=== PATIENT | female | born 1945 | race Caucasian/White ===

== ENCOUNTER 2018-11-06 21:49 | Observation (INO) ==
[2018-11-06] MEDS ORDERED: 0.9 % Sodium Chloride 1,000 ML IVC SCH ×2 (22:00)
--- NOTE | 2018-11-06 22:01 | Emergency Department Note ---
Disposition Clinical Impression: UTI (urinary tract infection), Weakness Disposition: Admitted As Inpatient Condition: Good Reasons to Return/Additional Instructions: Blood pressure screening: When you had your blood pressure taken, if the top number was greater than 120 with a bottom number was greater than 80, I discussed and recommended that you call your primary care provider or a physician of your choice this week to arrange follow-up for further evaluation of your blood pressure. Elevated blood pressures which go untreated can lead to stroke, heart attack, kidney failure and other life-threatening diseases. This is a screening exam and recommendations are to follow with your Family Physician. ( We discussed reasons why the elevation could be occurring at this time. ) If you have had an EKG and/or x-ray performed in the emergency department, it will be reviewed by the waiter/waitress take out and/or radiologist. If the review changes your diagnosis or treatment you will be contacted at the phone number you provided. Prescribed outpatient testing: Please call to schedule an appointment for the test that was ordered on the form provided. If you been prescribed an antibiotic: Take it as instructed until itis all finished. If you cannot tolerate that medication for some reason, call your physician for a replacement. If he had a specimen collected for a culture, a culture report takes 48-72 hours to generate. You will be contacted if a change in treatment is needed. Return if your condition worsens or if you have severe pain, fever, vomiting or difficulty breathing. If you received or were prescribed a medication that may cause drowsiness (Tramadol, Phenergan, Trazodone, Diazepam, Lorazepam, Hydroxyzine, Xanax, Hydrocodone, Oxycodone, Codeine, or any other medication) DO NOT drive or drink alcohol, or operate machinery that requires you to be alert for at least 8 hours after taking that medication. If you smoke or chew tobacco products: discuss with your family physician options to help in the cessation in the use of tobacco products. If you to find a physician: Go to [email or web address] or call: [facility], [facility] [phone] [facility], You may have multiple scripts and some may have been electronically sent . If you are give a printed script please also take this in when filling the scripts. A diagnosis may require multiple medications to treat and all are important in your healthcare issues. Referrals: Stephen Ugalde MD [Primary Care Provider] - Forms: ED Satisfaction Letter, Work/School Release Time of Disposition: 23:20 Weakness HPI - General Chief complaint: ED General Medical Stated complaint: tired Time Seen by Provider: 11/06/18 21:49 Source: patient Mode of arrival: ambulatory Limitations: no limitations Nursing Notes Reviewed: Yes Vital Signs Reviewed: Yes - History of Present Illness HPI Narrative: 73-year-old female who was escorted by family in that the emergency room and was sat down in the waiting room when called for from the waiting room patient was unable to get up and ambulate to the emergency room with just global weakness when patient gets back to the emergency room she states this lower weakness is been getting worse over the past couple weeks this is not anything new but assisted the point where now she is tired she's welded she is no energy she denies any calf pain test that she denies any rashes lesions she denies any bruising or ecchymosis she denies any neck pain neck stiffness joint aches any recent changes in medications she denies any diarrhea cough cold of flu symptoms all systems reviewed otherwise negative Pt Subjective Complaint: generalized weakness/fatigue Onset (ago): week(s) Duration: gradually worsening Location: generalized Pain Scale: 0 Improves with: none Worsens with: movement Associated symptoms: Denies: chest pain, confusion, dark stools, diaphoresis, dysuria, easy bruising, fever/chills, headaches, loss of appetite, nausea/vomit ing, myalgias, shortness of breath, syncope - Related Data Home Medications Medication Instructions Recorded Confirmed ASA/Acetaminophn/Mag/Alh/Caff 2 tab PO Q6H PRN 11/30/16 11/06/18 [[place]] Amlodipine Besylate 10 mg PO HS 11/30/16 11/06/18 Atorvastatin [Lipitor] 40 mg PO HS 11/30/16 11/06/18 Duloxetine HCl [Cymbalta] 60 mg PO HS 11/30/16 11/06/18 Gabapentin [Neurontin] 800 mg PO BID 11/30/16 11/06/18 Tizanidine HCl 4 mg PO HS PRN 11/30/16 11/06/18 clonazePAM [Klonopin] 1 mg PO BID PRN 11/30/16 11/06/18 Cholecalciferol (D-3) [Vitamin D] 2,000 unit PO DAILY 12/08/16 11/06/18 Fluticasone Propionate Nasal 1 - 2 spr NS DAILY PRN 07/13/17 11/06/18 [Flonase] Ibuprofen [Motrin] 200 mg PO Q4HR PRN 07/13/17 11/06/18 Famotidine [Heartburn Prevention] 20 mg PO 11/06/18 Loratadine [Claritin] 10 mg PO DAILY 11/06/18 11/06/18 raNITIdine HCl [Zantac] 150 mg PO DAILY 11/06/18 11/06/18 Previous Rx's Medication Instructions Recorded Pantoprazole Sodium [Protonix] 40 mg PO DAILY #30 tablet. 12/26/16 Allergies Allergy/AdvReac Type Severity Reaction Status Date / Time bacitracin Allergy Rash Verified 08/12/18 13:47 [From Neosporin ([id number])] Neomycin Allergy Rash Verified 08/12/18 13:47 [From Neosporin ([id number])] polymyxin B Allergy Rash Verified 08/12/18 13:47 [From Neosporin ([id number])] Sulfa (Sulfonamide AdvReac Agitated Verified 08/12/18 13:47 Antibiotics) All systems ED: reviewed and negative except as stated. Review of Systems: As Per HPI Constitutional: Reports: weakness. Denies: fever, chills Eyes: Denies: eye pain, eye discharge ENT ED: Denies: ear pain, throat pain Cardiovascular: Denies: chest pain, palpitations Respiratory: Denies: cough, dyspnea, wheezes Gastrointestinal: Denies: abdominal pain, nausea, vomiting Genitourinary: Denies: urgency, dysuria, frequency Musculoskeletal: Denies: back pain, neck pain Integumentary: Denies: rash, abrasion Neurological: Reports: weakness. Denies: headache, numbness, confusion Psychiatric: Denies: anxiety, depression Endocrine: Reports: fatigue Hematological/Lymphatic: Denies: easy bleeding Allergic/Immunologic: Denies: facial swelling Past Medical History - Past Medical History Attestation: Yes The following information was validated with the patient. Source: patient, old records reviewed, obtained from family, nursing notes reviewed Medical history: Reports: cancer, hyperlipidemia, hypertension Surgical history: Reports: breast surgery, hysterectomy, other Psychiatric history: Reports: anxiety, depression - Social History Smoking Status: Current every day smoker Smokeless Tobacco Status: No Alcohol use: Reports: none Drug use: Reports: none Physical Exam - General Limitations: no limitations General appearance: alert, in no apparent distress, other (Profoundly weak) - Head Head exam: atraumatic, normocephalic, normal inspection - Eye Eye exam: Present: normal appearance, PERRL, EOMI - ENT ENT exam: normal exam, normal oropharynx, mucous membranes moist, TM's normal bilaterally, normal external ear exam - Neck Neck exam: Present: normal inspection, full ROM, trachea midline - Chest Chest inspection: Present: normal inspection, symmetric chest wall rise - Respiratory Respiratory exam: Present: normal lung sounds bilaterally - Cardiovascular Cardiovascular exam: Present: regular rate, normal rhythm, normal heart sounds - Abdominal Exam Abdominal exam: Present: soft, Non-Tender, normal bowel sounds. Absent: mass, pulsatile mass - Expanded Upper Extremity Exam Shoulder exam: Present: normal inspection, full ROM Arm exam: Present: normal inspection, full ROM Elbow exam: Present: normal inspection, full ROM Forearm/Wrist exam: Present: normal inspection, full ROM Hand exam: Present: normal inspection, full ROM Vascular exam: Normal: capillary refill, radial pulse - Expanded Lower Extremity Exam Hip/Pelvis exam: Present: normal inspection, full ROM Upper leg exam: Present: normal inspection, full ROM Knee exam: Present: normal inspection, full ROM Lower leg exam: Present: normal inspection, full ROM Ankle exam: Present: normal inspection, full ROM Foot/toe exam: Present: normal inspection, full ROM Neurovascular/Tendon exam: Present: normal capillary refill, normal fine/light touch. Absent: motor deficit, sensory deficit, tendon deficit Gait: other (Patient was able to walk in from the parking lot but when going from the chair to the emergency room patient's that she was too weak to even get up and move) - Back Exam Back exam: Present: normal inspection, full ROM. Absent: muscle spasm - Neurological Exam Neurological exam: Present: alert, oriented X3, CN II-XII intact, normal gait - Psychiatric Psychiatric exam: Present: normal affect, normal mood - Skin Skin exam: Present: warm, dry, intact, normal color Course Course Narrative: Patient was immediately seen and evaluated laboratory data was ordered she was assisted from a wheelchair to the bed patient started to lose her strength and she was assisted up to the bed by myself and the nurse patient had labs EKG and chest x-ray and CT head with the EKG took time to obtain because there is a wandering baseline secondary to patient's respiratory effort with all the pain and weakness coming on over a period of time this is not something abrupt the patient is being evaluated will recommend recommendation for hospitalization to determine etiology for her overall weakness - Reevaluation(s) Reevaluation #1: Urinalysis comes back showing is positive for UTI we data blood cultures will have the patient admitted receive IV antibiotics for improvement patient and family agreeable transferred to [facility] Dr. Paul agrees Vital Signs Temperature 98.7 F 11/06/18 21:49 Pulse Rate 94 11/06/18 21:49 Respiratory Rate 16 11/06/18 21:49 Blood Pressure 154/70 11/06/18 21:49 O2 Sat by Pulse Oximetry 95 11/06/18 21:49 Temperature 98.7 F 11/06/18 21:49 Pulse Rate 83 11/06/18 23:31 Respiratory Rate 18 11/06/18 23:31 Blood Pressure 144/63 11/06/18 23:31 O2 Sat by Pulse Oximetry 93 11/06/18 23:31 Oxygen Delivery Oxygen Delivery Room Air Weakness - Differential Diagnosis Differential Diagnosis: Likely: anemia, sepsis/infection, dehydration, stroke, metabolic, thyroid/endocrine disorder - Medical Records Medical records reviewed: Yes I reviewed the patient's medical records. - Lab Data Lab results reviewed: Yes I reviewed the patient's lab results. Result diagrams: 11/06/18 22:15 11/06/18 22:15 Lab Results 11/06/18 11/06/18 11/06/18 Range/Units 22:15 22:15 22:15 WBC 9.0 (4.3-11.1) K/mcL RBC 4.54 (3.82-4.97) M/mcL Hgb 13.6 (11.5-15.4) g/dL Hct 41.6 (35.3-44.9) % MCV 91.6 (83.0-100.0) fL MCH 30.0 (28.0-33.3) pg MCHC 32.7 (31.6-35.5) g/dL RDW 13.8 (11.5-14.5) % Plt Count 329 (140-400) K/mcL MPV 10.7 (9.4-12.4) fL Immature Gran % 0.1 (0-4) % Seg Neutrophils % 55.0 % Lymphocytes % 28.7 % Monocytes % 6.7 % Eosinophils % 8.2 % Basophils % 1.3 % Neutrophils # 4.9 (1.6-8.9) K/mcL Lymphocytes # 2.6 (0.6-4.6) K/mcL Monocytes # 0.6 (0.0-1.3) K/mcL Eosinophils # 0.7 H (0.0-0.6) K/mcL Basophils # 0.1 (0.0-0.2) K/mcL PT (9.4-12.1) Seconds INR APTT 35.9 (26.0-36.0) Seconds D-Dimer (0-500) ng/mLFEU Sample Site ABG pH (7.32-7.45) pH Units ABG pCO2 (35-45) mmHg ABG pO2 (85-104) mmHg ABG HCO3 (21-27) mEq/L ABG Total CO2 (20-26) mEq/L ABG O2 Saturation (95-98) % ABG Base Excess (-2 to 3) mEq/L Javon Test O2 Delivery Device Sodium 139 (136-145) mEq/L Potassium 4.4 (3.5-5.1) mEq/L Chloride 107 (98-107) mEq/L Carbon Dioxide 22 L (23-29) mEq/L BUN 10 (8-23) mg/dL Creatinine 0.79 (0.60-1.20) mg/dL Est GFR ( Amer) > 60 (> 60) Est GFR (Non-Af Amer) > 60 (> 60) BUN/Creatinine Ratio 13 (6-26) Glucose 111 H (70-105) mg/dL Calculated Osmolality 288 (280-300) Lactic Acid (0.5-2.2) mmol/L Calcium 9.8 (8.6-10.3) mg/dL Magnesium (1.6-2.6) mg/dL Total Bilirubin 0.4 (0.3-1.0) mg/dL AST 30 (13-39) Units/L ALT 35 (7-52) Units/L Alkaline Phosphatase 79 (34-104) Units/L Troponin I (< 0.04) ng/mL B-Natriuretic Peptide (Less than 100) pg/mL Serum Total Protein 7.2 (6.4-8.9) g/dL Albumin 4.1 (3.5-5.7) g/dL Globulin 3.1 (2.4-3.5) g/dL Albumin/Globulin Ratio 1.3 (1.1-2.2) TSH (0.340-5.600) mcIU/mL Urine Color (Yellow) Urine Clarity (Clear) Urine pH (5.0-8.0) pH Units Ur Specific [place] (1.010-1.025) Urine Protein (Neg-Trace) mg/dL Urine Glucose (UA) (Normal) mg/dL Urine Ketones (Negative) mg/dL Urine Blood (Negative) Urine Nitrite (Negative) Urine Bilirubin (Negative) Urine Urobilinogen (Normal) mg/dL Ur Leukocyte Esterase (Negative) Urine Microscopic RBC (0-3) per hpf Urine Microscopic WBC (0-3) per hpf Ur Squamous Epith Cells (None-Few) per lpf Ur Culture Indicated? (NO) 11/06/18 11/06/18 11/06/18 Range/Units 22:15 22:15 22:15 WBC (4.3-11.1) K/mcL RBC (3.82-4.97) M/mcL Hgb (11.5-15.4) g/dL Hct (35.3-44.9) % MCV (83.0-100.0) fL MCH (28.0-33.3) pg MCHC (31.6-35.5) g/dL RDW (11.5-14.5) % Plt Count (140-400) K/mcL MPV (9.4-12.4) fL Immature Gran % (0-4) % Seg Neutrophils % % Lymphocytes % % Monocytes % % Eosinophils % % Basophils % % Neutrophils # (1.6-8.9) K/mcL Lymphocytes # (0.6-4.6) K/mcL Monocytes # (0.0-1.3) K/mcL Eosinophils # (0.0-0.6) K/mcL Basophils # (0.0-0.2) K/mcL PT 11.4 (9.4-12.1) Seconds INR 1.0 APTT (26.0-36.0) Seconds D-Dimer 490 (0-500) ng/mLFEU Sample Site ABG pH (7.32-7.45) pH Units ABG pCO2 (35-45) mmHg ABG pO2 (85-104) mmHg ABG HCO3 (21-27) mEq/L ABG Total CO2 (20-26) mEq/L ABG O2 Saturation (95-98) % ABG Base Excess (-2 to 3) mEq/L Javon Test O2 Delivery Device Sodium (136-145) mEq/L Potassium (3.5-5.1) mEq/L Chloride (98-107) mEq/L Carbon Dioxide (23-29) mEq/L BUN (8-23) mg/dL Creatinine (0.60-1.20) mg/dL Est GFR ( Amer) (> 60) Est GFR (Non-Af Amer) (> 60) BUN/Creatinine Ratio (6-26) Glucose (70-105) mg/dL Calculated Osmolality (280-300) Lactic Acid 1.3 (0.5-2.2) mmol/L Calcium (8.6-10.3) mg/dL Magnesium 2.1 (1.6-2.6) mg/dL Total Bilirubin (0.3-1.0) mg/dL AST (13-39) Units/L ALT (7-52) Units/L Alkaline Phosphatase (34-104) Units/L Troponin I < 0.03 (< 0.04) ng/mL B-Natriuretic Peptide (Less than 100) pg/mL Serum Total Protein (6.4-8.9) g/dL Albumin (3.5-5.7) g/dL Globulin (2.4-3.5) g/dL Albumin/Globulin Ratio (1.1-2.2) TSH 1.189 (0.340-5.600) mcIU/mL Urine Color (Yellow) Urine Clarity (Clear) Urine pH (5.0-8.0) pH Units Ur Specific [place] (1.010-1.025) Urine Protein (Neg-Trace) mg/dL Urine Glucose (UA) (Normal) mg/dL Urine Ketones (Negative) mg/dL Urine Blood (Negative) Urine Nitrite (Negative) Urine Bilirubin (Negative) Urine Urobilinogen (Normal) mg/dL Ur Leukocyte Esterase (Negative) Urine Microscopic RBC (0-3) per hpf Urine Microscopic WBC (0-3) per hpf Ur Squamous Epith Cells (None-Few) per lpf Ur Culture Indicated? (NO) 11/06/18 11/06/18 11/06/18 Range/Units 22:15 22:23 22:50 WBC (4.3-11.1) K/mcL RBC (3.82-4.97) M/mcL Hgb (11.5-15.4) g/dL Hct (35.3-44.9) % MCV (83.0-100.0) fL MCH (28.0-33.3) pg MCHC (31.6-35.5) g/dL RDW (11.5-14.5) % Plt Count (140-400) K/mcL MPV (9.4-12.4) fL Immature Gran % (0-4) % Seg Neutrophils % % Lymphocytes % % Monocytes % % Eosinophils % % Basophils % % Neutrophils # (1.6-8.9) K/mcL Lymphocytes # (0.6-4.6) K/mcL Monocytes # (0.0-1.3) K/mcL Eosinophils # (0.0-0.6) K/mcL Basophils # (0.0-0.2) K/mcL PT (9.4-12.1) Seconds INR APTT (26.0-36.0) Seconds D-Dimer (0-500) ng/mLFEU Sample Site R Radial ABG pH 7.42 (7.32-7.45) pH Units ABG pCO2 40 (35-45) mmHg ABG pO2 72 L (85-104) mmHg ABG HCO3 26 (21-27) mEq/L ABG Total CO2 27 H (20-26) mEq/L ABG O2 Saturation 95 (95-98) % ABG Base Excess 2 (-2 to 3) mEq/L Javon Test Positive O2 Delivery Device Room Air Sodium (136-145) mEq/L Potassium (3.5-5.1) mEq/L Chloride (98-107) mEq/L Carbon Dioxide (23-29) mEq/L BUN (8-23) mg/dL Creatinine (0.60-1.20) mg/dL Est GFR ( Amer) (> 60) Est GFR (Non-Af Amer) (> 60) BUN/Creatinine Ratio (6-26) Glucose (70-105) mg/dL Calculated Osmolality (280-300) Lactic Acid (0.5-2.2) mmol/L Calcium (8.6-10.3) mg/dL Magnesium (1.6-2.6) mg/dL Total Bilirubin (0.3-1.0) mg/dL AST (13-39) Units/L ALT (7-52) Units/L Alkaline Phosphatase (34-104) Units/L Troponin I (< 0.04) ng/mL B-Natriuretic Peptide 45 (Less than 100) pg/mL Serum Total Protein (6.4-8.9) g/dL Albumin (3.5-5.7) g/dL Globulin (2.4-3.5) g/dL Albumin/Globulin Ratio (1.1-2.2) TSH (0.340-5.600) mcIU/mL Urine Color Yellow (Yellow) Urine Clarity Clear (Clear) Urine pH 7.0 (5.0-8.0) pH Units Ur Specific [place] 1.015 (1.010-1.025) Urine Protein Negative (Neg-Trace) mg/dL Urine Glucose (UA) Normal (Normal) mg/dL Urine Ketones Negative (Negative) mg/dL Urine Blood Negative (Negative) Urine Nitrite Negative (Negative) Urine Bilirubin Negative (Negative) Urine Urobilinogen Normal (Normal) mg/dL Ur Leukocyte Esterase Trace H (Negative) Urine Microscopic RBC 0-3 (0-3) per hpf Urine Microscopic WBC 0-3 (0-3) per hpf Ur Squamous Epith Cells Few (None-Few) per lpf Ur Culture Indicated? YES A (NO) - Radiology Data Radiology results reviewed: Yes I reviewed the patient's radiology results. ITS Impressions Chest X-Ray 11/06/18 21:58 IMPRESSION: Stable portable study. D/ / Isabelle Arana Cha, MD / Isabelle Arana Cha, MD Interpreting Provider: Isabelle Arana Cha, MD Head CT 11/06/18 21:58 IMPRESSION: No acute intracranial abnormality. D/ / Isabelle Arana Cha, MD / Isabelle Arana Cha, MD Interpreting Provider: Isabelle Arana Cha, MD - EKG Data EKG attestation: Yes I reviewed and interpreted this EKG. EKG results narrative: Sinus rhythm left bundle branch block rate 98 IL 137 QRS 126 QT 415 Access 63 Critical Care Time Critical Care Time: No
[2018-11-06 22:28] LABS: ABG Base Excess 2 mEq/L (-2 to 3); ABG HCO3 26 mEq/L (21-27); ABG Oxygen Saturation 95 % (95-98); ABG PCO2 40 mmHg (35-45); ABG PH 7.42 pH Units (7.32-7.45); ABG PO2 72 mmHg (85-104); ABG TCO2 27 mEq/L (20-26)
[2018-11-06 22:35] LABS: Basophils # 0.1 K/mcL (0.0-0.2); Basophils % 1.3 %; Eosinophils # 0.7 K/mcL (0.0-0.6); Eosinophils % 8.2 %; Hematocrit 41.6 % (35.3-44.9); Hemoglobin 13.6 g/dL (11.5-15.4); Immature Granulocytes % 0.1 % (0-4); Lymphocytes # 2.6 K/mcL (0.6-4.6); Lymphocytes % 28.7 %; Mean Corpuscular HGB Conc 32.7 g/dL (31.6-35.5); Mean Corpuscular Volume 91.6 fL (83.0-100.0); Mean Platelet Volume 10.7 fL (9.4-12.4); Monocytes # 0.6 K/mcL (0.0-1.3); Monocytes % 6.7 %; Neutrophils # 4.9 K/mcL (1.6-8.9); Platelet Count 329 K/mcL (140-400); Red Blood Count 4.54 M/mcL (3.82-4.97); Red Cell Distribution Width 13.8 % (11.5-14.5)
[2018-11-06 22:41] LABS: Prothrombin Time 11.4 Seconds (9.4-12.1)
[2018-11-06 22:50] LABS: Troponin I < 0.03 ng/mL (< 0.04)
[2018-11-06 22:51] LABS: Bilirubin,Urine Negative (Negative); Blood,Urine Negative (Negative); Clarity,Urine Clear (Clear); Color,Urine Yellow (Yellow); Glucose,Urine (UA) Normal (Normal); Ketones,Urine Negative (Negative); Leukocyte Esterase,Urine Trace (Negative); Nitrite,Urine Negative (Negative); Protein,Urine Negative (Neg-Trace); Specific Gravity,Urine 1.015 (1.010-1.025); Urobilinogen,Urine Normal (Normal)
[2018-11-06 22:53] LABS: Alanine Aminotransferase 35 Units/L (7-52); Albumin 4.1 g/dL (3.5-5.7); Albumin/Globulin Ratio 1.3 (1.1-2.2); Alkaline Phosphatase 79 Units/L (34-104); Aspartate Amino Transferase 30 Units/L (13-39); BUN/Creatinine Ratio 13 (6-26); Bilirubin,Total 0.4 mg/dL (0.3-1.0); Blood Urea Nitrogen 10 mg/dL (8-23); Calcium 9.8 mg/dL (8.6-10.3); Carbon Dioxide 22 mEq/L (23-29); Chloride 107 mEq/L (98-107); Globulin 3.1 g/dL (2.4-3.5); Glucose 111 mg/dL (70-105); Osmolality,Calculated 288 (280-300); Potassium 4.4 mEq/L (3.5-5.1); Sodium 139 mEq/L (136-145); Total Protein 7.2 g/dL (6.4-8.9); eGFR For Non-African Americans > 60 (> 60)
[2018-11-06 22:54] LABS: Magnesium 2.1 mg/dL (1.6-2.6)
[2018-11-06 22:58] LABS: RBC,Urine 0-3 per hpf (0-3); Squamous Epithelial Cell,Urine Few per lpf (None-Few); WBC,Urine 0-3 per hpf (0-3)
[2018-11-06 23:04] LABS: Thyroid Stimulating Hormone 1.189 mcIU/mL (0.340-5.600)
[2018-11-06] MEDS: 0.9 % Sodium Chloride 1,000 ML IVC SCH (23:54)
[2018-11-07] MEDS ORDERED: Naloxone 0.4 MG/ML INJ IVP PRN (00:15)
[2018-11-07] MEDS ORDERED: Ibuprofen 400 MG TABLET PO PRN (00:15)
[2018-11-07] MEDS ORDERED: tiZANidine 4 MG TABLET PO PRN (00:15)
[2018-11-07] MEDS ORDERED: VANQUISH PO PRN (00:15)
[2018-11-07] MEDS ORDERED: Fluticasone Propionate Nasal 50 MCG/SPRAY BOTTLE NS PRN (00:15)
[2018-11-07] MEDS ORDERED: amLODIPine 5 MG TABLET PO SCH ×2 (00:59→21:00)
[2018-11-07] MEDS: clonazePAM 0.5 MG TABLET PO PRN ×2 (01:15→08:36)
[2018-11-07] MEDS: Gabapentin 400 MG CAPSULE PO SCH ×2 (01:15→08:29)
[2018-11-07 05:23] LABS: Basophils # 0.1 K/mcL (0.0-0.2); Basophils % 1.3 %; Eosinophils # 0.7 K/mcL (0.0-0.6); Eosinophils % 8.5 %; Hematocrit 37.4 % (35.3-44.9); Hemoglobin 12.3 g/dL (11.5-15.4); Immature Granulocytes % 0.1 % (0-4); Lymphocytes # 2.9 K/mcL (0.6-4.6); Mean Corpuscular HGB Conc 32.9 g/dL (31.6-35.5); Mean Corpuscular Hemoglobin 30.1 pg (28.0-33.3); Mean Corpuscular Volume 91.4 fL (83.0-100.0); Mean Platelet Volume 10.4 fL (9.4-12.4); Monocytes # 0.7 K/mcL (0.0-1.3); Monocytes % 8.1 %; Neutrophils # 4.1 K/mcL (1.6-8.9); Platelet Count 315 K/mcL (140-400); Red Blood Count 4.09 M/mcL (3.82-4.97); Red Cell Distribution Width 13.8 % (11.5-14.5)
[2018-11-07] MEDS: 0.9 % Sodium Chloride 1,000 ML IVC SCH (05:31)
[2018-11-07 05:43] LABS: BUN/Creatinine Ratio 13 (6-26); Blood Urea Nitrogen 9 mg/dL (8-23); Carbon Dioxide 25 mEq/L (23-29); Chloride 111 mEq/L (98-107); Glucose 85 mg/dL (70-105); Osmolality,Calculated 290 (280-300); Potassium 3.6 mEq/L (3.5-5.1); Sodium 141 mEq/L (136-145); eGFR For Non-African Americans > 60 (> 60)
[2018-11-07] MEDS ORDERED: Famotidine 20 MG TABLET PO SCH (06:30)
[2018-11-07] MEDS ORDERED: Cholecalciferol (D-3) 1,000 UNIT TABLET PO SCH (09:00)
[2018-11-07] MEDS ORDERED: Loratadine 10 MG TABLET PO SCH (09:00)
[2018-11-07] MEDS ORDERED: Gabapentin 400 MG CAPSULE PO SCH (09:00)
[2018-11-07 10:11] VITALS: BP 125/61
--- NOTE | 2018-11-07 11:27 | Internal Med History&Physical ---
Date of Encounter: 11/07/18 Time of Encounter: 10:50 Assessment and Plan (1) COPD (chronic obstructive pulmonary disease) Current visit: Yes Status: Chronic Suspect exacerbation of COPD with asthma component with possible superimposed viral bronchitis. I encouraged her to discontinue electronic cigarette. She has aerosol nebulizer at home. Room air oximetry will be checked on 6 minute walk prior to discharge. Qualifiers: COPD type: unspecified COPD Qualified Code(s): J44.9 - Chronic obstructive pulmonary disease, unspecified (2) Hypertension Current visit: Yes Status: Chronic Continue amlodipine Qualifiers: Hypertension type: essential hypertension Qualified Code(s): I10 - Essential (primary) hypertension (3) Weakness Current visit: Yes Status: Acute Suspect exacerbation of COPD with possible superimposed viral infection. (4) UTI (urinary tract infection) Current visit: Yes Status: Acute Equivocal. She received Rocephin in the emergency room. No WBC or bacteria were seen in the urine. Antibodies will not be continued. Qualifiers: Urinary tract infection type: site unspecified Hematuria presence: without hematuria Qualified Code(s): N39.0 - Urinary tract infection, site not specified Internal Medicine - H&P: HPI Chief complaint: Weakness Admitted From: Emergency Dept Plans for Post Hospital Care: Home History of present illness: Ms. Schilling is a 73 year old female who came to emergency room stating she had weakness with mild lower abdominal discomfort present for approximately 2 weeks. She states she felt tired and occasional chilled but no fever. She has a diagnosis of IBS but states there has been no change in her pattern of rare diarrhea or vomiting. She had no other infectious symptoms. She came to emergency room and was felt to have UTI. [facility] care [facility]. She states she feels improved at the present time and stable for discharge home. Past Med Surg Social Fam HX - Past Medical History Medical history: cancer, hyperlipidemia, hypertension Additional medical history: chrohns, Psychiatric history: anxiety, depression - Past Surgical History Surgical History: breast surgery, hysterectomy, other Additional surgical history: colon resection,egd,,left heart cath. 12/08/16 L BREAST MASTECTOMY PER - Social History Smoking Status: Current every day smoker Smokeless Tobacco Status: No Alcohol use: none Drug use: none - Family History Mother Hx Family Cardiac Disorders: Yes Internal Medicine - H&P: Meds ASA/Acetaminophn/Mag/Alh/Caff [Vanquish Caplet] 2 tab PO Q6H PRN 11/30/16 [History] Amlodipine Besylate 10 mg PO HS 11/30/16 [History] Atorvastatin [Lipitor] 40 mg PO HS 11/30/16 [History] Duloxetine HCl [Cymbalta] 60 mg PO HS 11/30/16 [History] Gabapentin [Neurontin] 800 mg PO BID 11/30/16 [History] Tizanidine HCl 4 mg PO HS PRN 11/30/16 [History] clonazePAM [Klonopin] 1 mg PO BID PRN 11/30/16 [History] Cholecalciferol (D-3) [Vitamin D] 2,000 unit PO DAILY 12/08/16 [History] Pantoprazole Sodium [Protonix] 40 mg PO DAILY #30 tablet. 12/26/16 [Rx] Fluticasone Propionate Nasal [Flonase] 1 - 2 spr NS DAILY PRN 07/13/17 [History] Ibuprofen [Motrin] 200 mg PO Q4HR PRN 07/13/17 [History] Famotidine [Heartburn Prevention] 20 mg PO 11/06/18 [History] Loratadine [Claritin] 10 mg PO DAILY 11/06/18 [History] raNITIdine HCl [Zantac] 150 mg PO DAILY 11/06/18 [History] Allergy/AdvReac Type Severity Reaction Status Date / Time bacitracin Allergy Rash Verified 08/12/18 13:47 [From Neosporin ([id number])] Neomycin Allergy Rash Verified 08/12/18 13:47 [From Neosporin ([id number])] polymyxin B Allergy Rash Verified 08/12/18 13:47 [From Neosporin ([id number])] Sulfa (Sulfonamide AdvReac Agitated Verified 08/12/18 13:47 Antibiotics) All Systems PM: A 10-system review of systems was performed and is negative for pertinent findings except as documented above in the HPI. Review of systems: Gen.: She states her weight has been stable the past few months Cardiovascular: She has history of hypertension but denies [place] heart failure angina DVT or pulmonary embolus Respiratory: She smoked cigarettes for approximately age [age] up to one pack per day. She now uses electronic cigarette. She reports PFTs were done in the past but she does not recall the date. She claims she was told in the past she has COPD but is not using home oxygen. GI: She has been diagnosed with IBS as per history of present illness. She has occasional GERD symptoms. She was told in the past she had Crohn's disease and had approximately 14 inches of small and large bowel resection in 1967. She had colonoscopy 07/13/2017 which showed nonbleeding internal hemorrhoids and evidence of previous [id number]-[id number] ileocolonic anastomosis from extended right hemicolectomy. : She had cystoscopy 2013 her she denies disorders of her kidneys or bladder. Neurologic: She denies large distribution strokes or seizures. Endocrine: She has hyperlipidemia but denies diabetes or thyroid disease Hematology/oncology: She had left breast cancer lumpectomy November 2016. She did not receive postop XRT or chemotherapy. She states she is cancer free. She denies other internal malignancies or blood disorders. Psychiatric: She has anxiety and depression but denies other mental health diagnoses. [place] skeletal: She has degenerative disc disease of her back. She has DJD and osteoporosis but denies gout. - Constitutional Vitals: Temp Pulse Resp BP Pulse Ox 98.8 F 83 18 125/61 92 11/07/18 10:10 11/07/18 10:10 11/07/18 10:10 11/07/18 10:10 11/07/18 10:10 Exam: Gen.: She is a well-developed well-nourished female lying in bed who appears in no acute distress HEENT: Head is atraumatic and normocephalic. Eyes: EOMI. There is no scleral icterus. Mouth: Mucosa is moist. Neck: Supple and nontender. There is no thyromegaly or adenopathy noted. Heart: Regular without murmurs gallops or ectopics Lungs: She has prolonged expiratory phase and mild diffuse wheezing. Abdomen: Soft and nontender. No masses or guarding are noted. Extremities: There is no cyanosis edema or clubbing noted. Dorsalis pedis and posttibial pulses are trace to 1+ palpable bilaterally. Neurologic: Mental status: She is talkative and a good historian. Cranial nerves: Smile is symmetric. Forehead wrinkles bilaterally. Tongue protrudes midline. EOMI. Motor: There is no pronator drift. Cerebellar: Finger to nose is intact bilaterally. Skin: Warm and dry Internal Med - H&P Results - Labs CBC & Chem 7: 11/07/18 05:02 11/07/18 05:02 Labs: Short CBC 11/06/18 11/07/18 Range/Units 22:15 05:02 WBC 9.0 8.5 (4.3-11.1) K/mcL Hgb 13.6 12.3 (11.5-15.4) g/dL Hct 41.6 37.4 (35.3-44.9) % Plt Count 329 315 (140-400) K/mcL Neutrophils # 4.9 4.1 (1.6-8.9) K/mcL BMP 11/06/18 11/07/18 22:15 05:02 Sodium 139 141 Potassium 4.4 3.6 Chloride 107 111 H Carbon Dioxide 22 L 25 BUN 10 9 Creatinine 0.79 0.70 Glucose 111 H 85 Calcium 9.8 9.0 Cardiac Enzymes 11/06/18 Range/Units 22:15 Troponin I < 0.03 (< 0.04) ng/mL Liver Function 11/06/18 Range/Units 22:15 Total Bilirubin 0.4 (0.3-1.0) mg/dL AST 30 (13-39) Units/L ALT 35 (7-52) Units/L Alkaline Phosphatase 79 (34-104) Units/L Albumin 4.1 (3.5-5.7) g/dL Urine 11/06/18 Range/Units 22:50 Urine Color Yellow (Yellow) Urine Clarity Clear (Clear) Urine pH 7.0 (5.0-8.0) pH Units Ur Specific [place] 1.015 (1.010-1.025) Urine Protein Negative (Neg-Trace) mg/dL Urine Glucose (UA) Normal (Normal) mg/dL - ABG Interpretation ABG results: 11/06/18 22:23 ABG pH 7.42 ABG pCO2 40 ABG pO2 72 L ABG HCO3 26 ABG Total CO2 27 H ABG O2 Saturation 95 ABG Base Excess 2 - Impressions ITS Impressions Chest X-Ray 11/06/18 21:58 IMPRESSION: Stable portable study. D/ / Isabelle Arana Cha, MD / Isabelle Arana Cha, MD Interpreting Provider: Isabelle Arana Cha, MD Head CT 11/06/18 21:58 IMPRESSION: No acute intracranial abnormality. D/ / Isabelle Arana Cha, MD / Isabelle Arana Cha, MD Interpreting Provider: Isabelle Arana Cha, MD
--- NOTE | 2018-11-07 11:44 | Discharge Summary ---
Orders not resulted at time of discharge: Pending orders 11/06/18 22:50 Culture,Urine [RM] Stat 11/06/18 23:13 Culture,Blood [BC] Stat Date of Encounter: 11/07/18 Time of Encounter: 10:50 - Discharge Diagnosis (1) COPD (chronic obstructive pulmonary disease) Priority: Primary Status: Chronic Qualifiers: COPD type: unspecified COPD Qualified Code(s): J44.9 - Chronic obstructive pulmonary disease, unspecified (2) Hypertension Priority: Secondary Status: Chronic Qualifiers: Hypertension type: essential hypertension Qualified Code(s): I10 - Essential (primary) hypertension (3) Weakness Priority: Secondary Status: Acute (4) UTI (urinary tract infection) Priority: Secondary Status: Acute Qualifiers: Urinary tract infection type: site unspecified Hematuria presence: without hematuria Qualified Code(s): N39.0 - Urinary tract infection, site not specified Hospital course: Ms. Schilling is a 73 year old female who came to emergency room stating she had weakness with mild lower abdominal discomfort present for approximately 2 weeks. She states she felt tired and occasional chilled but no fever. She has a diagnosis of IBS but states there has been no change in her pattern of rare diarrhea or vomiting. She had no other infectious symptoms. She came to emergency room and was felt to have UTI. She was admitted to [facility] for ongoing care needs. Initial orders were written by the emergency room physician. I saw her morning of November 07 and performed the history physical and discharge. By the time I saw her she stated she still felt weak but improved and stable for discharge home. I encouraged her to discontinue her use of electronic cigarette. Room air oximetry will be checked on 6 minute walk prior to discharge. She was given a dose of Rocephin IV in emergency room for diagnoses of UTI. Review of urinalysis shows no bacteria reported and 0-3 WBCs. Antibiotics will not be continued. She will follow with her PCP Dr. Stephen Ugalde within 1 week. - Time Spent with Patient Total time spent providing and/or coordinating discharge services: - Discharge Medications Home Medications: ASA/Acetaminophn/Mag/Alh/Caff [Vanquish Caplet] 2 tab PO Q6H PRN 11/30/16 [History] Amlodipine Besylate 10 mg PO HS 11/30/16 [History] Atorvastatin [Lipitor] 40 mg PO HS 11/30/16 [History] Duloxetine HCl [Cymbalta] 60 mg PO HS 11/30/16 [History] Gabapentin [Neurontin] 800 mg PO BID 11/30/16 [History] Tizanidine HCl 4 mg PO HS PRN 11/30/16 [History] clonazePAM [Klonopin] 1 mg PO BID PRN 11/30/16 [History] Cholecalciferol (D-3) [Vitamin D] 2,000 unit PO DAILY 12/08/16 [History] Pantoprazole Sodium [Protonix] 40 mg PO DAILY #30 tablet. 12/26/16 [Rx] Fluticasone Propionate Nasal [Flonase] 1 - 2 spr NS DAILY PRN 07/13/17 [History] Ibuprofen [Motrin] 200 mg PO Q4HR PRN 07/13/17 [History] Famotidine [Heartburn Prevention] 20 mg PO 11/06/18 [History] Loratadine [Claritin] 10 mg PO DAILY 11/06/18 [History] raNITIdine HCl [Zantac] 150 mg PO DAILY 11/06/18 [History] Allergies/Adverse Reactions: Allergy/AdvReac Type Severity Reaction Status Date / Time bacitracin Allergy Rash Verified 08/12/18 13:47 [From Neosporin ([id number])] Neomycin Allergy Rash Verified 08/12/18 13:47 [From Neosporin ([id number])] polymyxin B Allergy Rash Verified 08/12/18 13:47 [From Neosporin ([id number]-[id number])] Sulfa (Sulfonamide AdvReac Agitated Verified 08/12/18 13:47 Antibiotics) Date of admission: 11/06/18 23:51 Primary care physician: Stephen Ugalde MD - Constitutional Vitals: Temp Pulse Resp BP Pulse Ox 98.8 F 83 18 125/61 92 11/07/18 10:10 11/07/18 10:10 11/07/18 10:10 11/07/18 10:10 11/07/18 10:10 - Patient Status Disposition: Home, Self-Care Condition: Good - Discharge Instructions Follow Up With: Stephen Ugalde MD [Primary Care Provider] - 1 week - Diet and Activity Activity: resume usual activities as tolerated Diet: advance to your usual diet
--- NOTE | 2018-11-07 17:39 | Electrocardiograph Report ---
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
== END 2018-11-07 12:18 | disposition home or self-care (01) ==
LOC: EMEROOPIK 21:49 → INPPIK 21:49
PROVIDERS: ADMIT Internal Medicine; ATTEND Internal Medicine